=== PATIENT | female | born 1985 | race Two or more races ===

== ENCOUNTER 2018-08-03 01:45 | Inpatient (IN) | payer OTHER ==
--- NOTE | 2018-08-03 02:41 | HP ---
Past Medical History - Primary Care Physician PCP:: Jennifer Nichols - Admission Chief Complaint: 33 yrs EDC 08/14/18 by late sono is 38.2/7 weeks c/o onset LP since !.15 AM No care .LD in 04/2017 History of Present Illness: Pt was seen on 07/25/18 in L&D for labor asses some workup was done . sono on 07/25/18 reported 36,6 weeks GA, SLIUP,Vx, EVANGELINA 12.9cm, EFW 3125gm, BPP 8/ 8, post placenta. U/A neg, Urine Drug Tox neg urine GC/CT neg, Vaginal culture for GBS POS History Source: Patient, Medical Record (limited records) Limitations to Obtaining History: No Limitations - Past Medical History MUD ENGINEER: No: CVA, Migraine, Seizure Cardiovascular: No: HTN, Murmur Pulmonary: Yes: Asthma (rx albuterol inhaler prn) Gastrointestinal: Yes: Constipation Hepatobiliary: Yes: Other (not known) Renal/: Yes: Other (not known) ...: 7 ...Para: 5 (5 06/10, 10/09, 11/13, 12/13, , ) ...Term: 5 (4 in [place],1 in [place] ) ...Induced : 1 (G6, 1st trimester ) ...EDC by Sono: 08/14/18 (38.2 weeks by late sono on 07/25/18) Heme/Onc: Yes: Anemia (started vit 1 week ago) Infectious Disease: Yes: Other (unknown) Psych: No: Addictions, Anxiety, Bipolar, Depression, Panic, Psychosis, Schizophrenia, Other Endocrine: Yes: Other (none known) - Past Surgical History Past Surgical History: Yes: None Hx Myomectomy: No Hx Transabdominal Cerclage: No - Alcohol/Substance Use Hx Alcohol Use: No History of Substance Use: reports: None Home Medications - Allergies Allergies/Adverse Reactions: Allergies Allergy/AdvReac Type Severity Reaction Status Date / Time No Known Allergies Allergy Verified 08/03/18 05:39 - Home Medications Home Medications: Ambulatory Orders Albuterol Sulfate Inhaler - [Ventolin Hfa Inhaler -] 1 puff IH PRN 07/25/18 Pnv No.95/Ferrous Fum/Folic AC [ Formula] 1 each PO DAILY #30 tablet Physical Exam - Maternity Vital Signs: Selected Entries 08/03/18 03:10 Temperature 98.2 F Pulse Rate 103 H Blood Pressure 129/80 Weight 167 lb Constitutional: Yes: Well Nourished, Obese Eyes: Yes: WNL HENT: Yes: WNL, Normocephalic Neck: Yes: WNL Cardiovascular: Yes: WNL, Regular Rate and Rhythm Lungs: Clear to auscultation - Abdominal Exam/OB Fundal Height: 38 Number of Fetuses: Single Presentation: Vertex Contractions: Yes Regularity: Regular (3-4 min) Intensity: Mod/Strong Monitor Mode: External Heart Rate (range): 130-140 Heart Rate Location: [facility] Category: I Accelerations: Uniform Decelerations: None - Vaginal Exam/OB Vaginal Bleediing: Bloody Show Speculum Exam: No Dilatation (cm): 4-5 Effacement (%): 70 Amniotic Membrane Status: Intact Nitrazine Test: Negative Presentation: Vertex/Position Station: -2 - Physical Exam Musculoskeletal: Yes: WNL (-2/-3) Extremities: Yes: WNL Edema: Yes Edema: LLE: 1+, RLE: 1+ Integumentary: Yes: Tattoos Deep Tendon Reflex Grade: Normal +2 ...Motor Strength: WNL Psychiatric: Yes: WNL, Alert, Oriented - Labs Lab Results: Laboratory Tests 08/03/18 08/03/18 02:45 02:45 WBC 8.0 Hgb 9.6 L Hct 28.5 L Plt Count 224 PT with INR 12.30 INR 1.04 PTT (Actin FS) 22.7 L Laboratory Tests 08/03/18 08/03/18 08/03/18 02:45 02:45 02:45 Sodium 138 Potassium 3.8 Chloride 105 Carbon Dioxide 26 BUN 12 Creatinine 0.9 Random Glucose 82 Calcium 8.7 Total Bilirubin 0.4 AST 8 L ALT 15 Total Protein 6.6 Albumin 2.7 L RPR Titer Nonreactive HIV 1&2 Antibody Screen Negative HIV P24 Antigen Negative Problem List - Problems (1) with 38 completed weeks gestation Code(s): Z3A.38 - 38 WEEKS GESTATION OF (2) No care in current Code(s): O09.30 - SUPRVSN OF PREG W INSUFFICIENT ANTENAT CARE, UNSP TRIMESTER (3) Labor established Code(s): EAW0458 - (4) Positive GBS test Code(s): B95.1 - STREPTOCOCCUS, GROUP B, CAUSING DISEASES CLASSD ELSWHR (5) Grand multipara in labor in third trimester Code(s): O09.43 - SUPRVSN OF W GRAND MULTIPARITY, THIRD TRIMESTER (6) Anemia Code(s): D64.9 - ANEMIA, UNSPECIFIED Qualifiers: Anemia type: iron deficiency Iron deficiency anemia type: inadequate dietary iron intake Qualified Code(s): D50.8 - Other iron deficiency anemias Assessment/Plan 33 yrs , 38 .2weeks gestation, no care, GBS pos Plan IV ampicillin prophylaxis labor analgesia stadol + phenrgan or epidural trial vaginal delivery
[2018-08-03] MEDS ORDERED: ELECTROLYTE-148 SOLN 1,000 ML IV SCH (02:45)
[2018-08-03] MEDS ORDERED: AMPICILLIN - 2 GM in SODIUM CHLORIDE 100 ML IVPB ONE (02:59)
[2018-08-03] MEDS ORDERED: AMPICILLIN SODIUM 2 GM VIAL ONE (03:01)
[2018-08-03 03:09] LABS: BASO % 0.4 % (0-2.0); EOS % 1.1 % (0-4.5); HEMATOCRIT 28.5 % (32.4-45.2); HEMOGLOBIN 9.6 GM/dL (10.7-15.3); LYMPH % 22.5 % (8-40); MCH 29.8 pg (25.7-33.7); MCHC 33.6 g/dl (32.0-36.0); MEAN CELL VOLUME 88.7 fl (80-96); MEAN PLT VOLUME 8.9 fl (7.5-11.1); MONO % 11.1 % (3.8-10.2); NEUT % 64.9 % (42.8-82.8); PLATELET COUNT 224 K/MM3 (134-434); RBC 3.22 M/mm3 (3.60-5.2); RDW 15.7 % (11.6-15.6)
[2018-08-03 03:24] VITALS: BMI 28.6
[2018-08-03] MEDS ORDERED: OXYTOCIN 20 UNITS in 0.9% NS 20 UNIT/1,000 ML INFUS.BAG IV ONE ×2 (03:26→06:41)
[2018-08-03 03:27] LABS: INR 1.04 (0.83-1.09); PROTHROMBIN TIME (PATIENT) 12.3 SEC (9.7-13.0)
[2018-08-03 03:29] LABS: ACTIVATED PTT 22.7 SECONDS (25.2-36.5)
--- NOTE | 2018-08-03 03:40 | PN ---
Delivery - Delivery Vaginal Delivery: No Problems, Spontaneous (baby girl delivered vx, Tona , cord around neck, released before delivery of shoulder , immediate oral & nasal suction was done , 9/9. placenta & membranes delivered completely. perineum & vagina was intact .) EBL (cc): 300 Delivery, Single - Stages of Labor Date 1st Stage Initiatied: 08/03/18 Time 1st Stage Initiated: 01:15 Date 2nd Stage Initiated: 08/03/18 Time 2nd Stage Initiated: : Date of Delivery: 08/03/18 Time of Delivery: : Date Placenta Delivered: 08/03/18 Time Placenta Delivered: : Placenta: Yes: Spontaneous, Uterine Exploration - Condition of Infant Adult Nurse Practitioner/Station Agent Present: No Infant Gender: Female Weight: 8 lb 8 oz Position: Left, OA (cord around neck x1) - 1 Minute Total Score: 9 5 Minutes Total Score: 9 - [place] Feeding Plan Initial Plan: Elected not to breastfeed exclusively throughout hospitalization Remarks - Remarks Remarks: 33 yrs , 38.2 weks iup , no care , GBS pos pt received one dose of IV Ampiciilin Intrapartum course uneventful
[2018-08-03] MEDS ORDERED: METHYLERGONOVINE MALEATE 0.2 MG/1 ML AMP IM PRN (03:41)
[2018-08-03] MEDS ORDERED: BENZOCAINE 28 GM HEMORRHOIDAL OINTMENT TP PRN (03:41)
[2018-08-03] MEDS ORDERED: BISACODYL 10 MG SUPP.RECT RC PRN (03:41)
[2018-08-03] MEDS ORDERED: oxyCODONE HCL 5 MG TABLET PO PRN (03:41)
[2018-08-03] MEDS ORDERED: BENZOCAINE 20% 57 GM BOTTLE TP PRN (03:41)
[2018-08-03] MEDS ORDERED: WITCH HAZEL 50% (TUCKS) 40 PAD/JAR PAD TP PRN (03:41)
[2018-08-03 03:45] LABS: ALBUMIN 2.7 g/dl (3.4-5.0); ALK PHOS 159 U/L (45-117); ANION GAP 7 MMOL/L (8-16); BILIRUBIN,TOTAL 0.4 mg/dL (0.2-1); BLOOD UREA NITROGEN 12 mg/dL (7-18); CALCIUM 8.7 mg/dL (8.5-10.1); CHLORIDE 105 mmol/L (98-107); CO2 26 mmol/L (21-32); CREATININE 0.9 mg/dL (0.55-1.3); GLUCOSE,RANDOM 82 mg/dL (74-106); POTASSIUM 3.8 mmol/L (3.5-5.1); SGOT/AST 8 U/L (15-37); SGPT/ALT 15 U/L (13-61); SODIUM 138 mmol/L (136-145); TOT PROT 6.6 g/dl (6.4-8.2)
[2018-08-03] MEDS ORDERED: OXYTOCIN 20 UNITS in 0.9% NS 20 UNIT/1,000 ML INFUS.BAG IV SCH (03:45)
[2018-08-03] MEDS ORDERED: IBUPROFEN 600 MG TABLET (FP) PO ONE (03:58)
[2018-08-03] MEDS ORDERED: ACETAMINOPHEN 325 MG TABLET (FP) ONE (03:59)
[2018-08-03] MEDS: IBUPROFEN 600 MG TABLET (FP) PO PRN ×2 (04:00→17:29)
[2018-08-03] MEDS: ACETAMINOPHEN 325 MG TABLET (FP) PO PRN ×2 (04:00→17:30)
[2018-08-03] MEDS ORDERED: TUBERCULIN PPD 5 TU/0.1ML SYRINGE (IN PATIENT USE ONLY) ID ONE (06:30)
[2018-08-03] MEDS ORDERED: AMPICILLIN - 1 GM in SODIUM CHLORIDE 100 ML IVPB SCH (07:00)
[2018-08-03] MEDS: PRENATAL VITAMINS W/ FOLIC ACID TABLET (FP) PO SCH (11:00)
[2018-08-03] MEDS: FERROUS SO4 325 MG TABLET (FP) PO SCH ×2 (11:00→17:29)
--- NOTE | 2018-08-04 07:39 | PN ---
Post Progress Note - Subjective Subjective: no complains Post Day: 1 Type of Delivery: Vital Signs: Vital Signs Temperature 98.0 F 08/04/18 05:17 Pulse Rate 70 08/04/18 05:17 Respiratory Rate 18 08/04/18 05:17 Blood Pressure 100/60 08/04/18 05:17 O2 Sat by Pulse Oximetry (%) 100 08/03/18 15:12 Breast Exam: Yes: Soft, Other. No: Engorged Uterus: Yes: Fundus Firm, Fundus below umbilicus, Non-tender Lochia: Yes: Rubra Lochia, amount: Moderate Extremities: Yes: Calves non-tender Perineum: Yes: Intact Activity: Ambulating - Labs Labs: CBC WBC 8.0 K/mm3 (4.0-10.0) 08/03/18 02:45 RBC 3.22 M/mm3 (3.60-5.2) L 08/03/18 02:45 Hgb 9.6 GM/dL (10.7-15.3) L 08/03/18 02:45 Hct 28.5 % (32.4-45.2) L 08/03/18 02:45 MCV 88.7 fl (80-96) 08/03/18 02:45 MCH 29.8 pg (25.7-33.7) 08/03/18 02:45 MCHC 33.6 g/dl (32.0-36.0) 08/03/18 02:45 RDW 15.7 % (11.6-15.6) H 08/03/18 02:45 Plt Count 224 K/MM3 (134-434) 08/03/18 02:45 MPV 8.9 fl (7.5-11.1) 08/03/18 02:45 Absolute Neuts (auto) 5.2 K/mm3 (1.5-8.0) 08/03/18 02:45 Neutrophils % 64.9 % (42.8-82.8) 08/03/18 02:45 Lymphocytes % 22.5 % (8-40) 08/03/18 02:45 Monocytes % 11.1 % (3.8-10.2) H 08/03/18 02:45 Eosinophils % 1.1 % (0-4.5) 08/03/18 02:45 Basophils % 0.4 % (0-2.0) 08/03/18 02:45 Nucleated RBC % 0 % (0-0) 08/03/18 02:45 Problem List - Problems (1) with 38 completed weeks gestation Code(s): Z3A.38 - 38 WEEKS GESTATION OF (2) No care in current Code(s): O09.30 - SUPRVSN OF PREG W INSUFFICIENT ANTENAT CARE, UNSP TRIMESTER (3) Labor established Code(s): IRS4238 - (4) Positive GBS test Code(s): B95.1 - STREPTOCOCCUS, GROUP B, CAUSING DISEASES CLASSD ELSWHR (5) Grand multipara in labor in third trimester Code(s): O09.43 - SUPRVSN OF W GRAND MULTIPARITY, THIRD TRIMESTER (6) Anemia Code(s): D64.9 - ANEMIA, UNSPECIFIED Qualifiers: Anemia type: iron deficiency Iron deficiency anemia type: inadequate dietary iron intake Qualified Code(s): D50.8 - Other iron deficiency anemias (7) Vaginal delivery Code(s): O80 - ENCOUNTER FOR FULL-TERM UNCOMPLICATED DELIVERY (8) Encounter for assessment Code(s): Z39.2 - ENCOUNTER FOR ROUTINE FOLLOW-UP
[2018-08-04] MEDS: FERROUS SO4 325 MG TABLET (FP) PO SCH ×2 (08:19→17:16)
[2018-08-04 08:22] LABS: BASO % 0.4 % (0-2.0); EOS % 2.3 % (0-4.5); HEMATOCRIT 28.2 % (32.4-45.2); HEMOGLOBIN 9.5 GM/dL (10.7-15.3); LYMPH % 18.9 % (8-40); MCH 29.6 pg (25.7-33.7); MCHC 33.5 g/dl (32.0-36.0); MEAN CELL VOLUME 88.2 fl (80-96); MEAN PLT VOLUME 8.6 fl (7.5-11.1); MONO % 8.1 % (3.8-10.2); NEUT % 70.3 % (42.8-82.8); PLATELET COUNT 212 K/MM3 (134-434); RDW 16.1 % (11.6-15.6); WHITE BLOOD COUNT 9.7 K/mm3 (4.0-10.0)
[2018-08-04] MEDS: PRENATAL VITAMINS W/ FOLIC ACID TABLET (FP) PO SCH (09:15)
[2018-08-04] MEDS ORDERED: DIPHTH,PERTUSS(ACELL),TET 0.5 ML DISP.SYRIN IM ONE (10:00)
[2018-08-04 15:16] LABS: HBsAG SCREEN Negative (Negative)
[2018-08-04 17:12] LABS: RUBELLA IgG ANTIBODY 3.31 index (Immune >0.99)
[2018-08-04] MEDS: IBUPROFEN 600 MG TABLET (FP) PO PRN (21:44)
[2018-08-04] MEDS: ACETAMINOPHEN 325 MG TABLET (FP) PO PRN (21:44)
[2018-08-04] MEDS ORDERED: SENNOSIDES/DOCUSATE COMBO (SENNA PLUS) TABLET (UD) PO PRN (22:00)
[2018-08-05 08:03] VITALS: BP 127/70; PULSE 67; TEMP 98.5
[2018-08-05] MEDS: FERROUS SO4 325 MG TABLET (FP) PO SCH (08:21)
[2018-08-05] MEDS: IBUPROFEN 600 MG TABLET (FP) PO PRN (08:21)
[2018-08-05] MEDS: ACETAMINOPHEN 325 MG TABLET (FP) PO PRN (08:21)
[2018-08-05] MEDS: PRENATAL VITAMINS W/ FOLIC ACID TABLET (FP) PO SCH (09:06)
--- NOTE | 2018-08-05 10:08 | DS ---
Physical Exam-POLICE COMMUNICATIONS DISPATCHER Vital Signs: Vital Signs Temperature 98.5 F 08/05/18 07:20 Pulse Rate 67 08/05/18 07:20 Respiratory Rate 20 08/05/18 07:20 Blood Pressure 127/70 08/05/18 07:20 O2 Sat by Pulse Oximetry (%) 100 08/03/18 15:12 Constitutional: Yes: Well Nourished Eyes: Yes: Conjunctiva Clear HENT: Yes: Atraumatic Neck: Yes: Supple Cardiovascular: Yes: Regular Rate and Rhythm Respiratory: Yes: Regular Gastrointestinal: Yes: Normal Bowel Sounds ...Rectal Exam: Yes: WNL Pelvis: Yes: WNL External Genitalia: Yes: Normal Vaginal Exam: Yes: Normal Cervix: Yes: Normal Uterus: Yes: Normal Neurological: Yes: Alert, Oriented ...Motor Strength: WNL Psychiatric: Yes: Alert, Oriented Labs: CBC, BMP 08/04/18 07:25 08/03/18 02:45 Delivery - Delivery Vaginal Delivery: No Problems, Spontaneous (baby girl delivered vx, Tona , cord around neck, released before delivery of shoulder , immediate oral & nasal suction was done , 9/9. placenta & membranes delivered completely. perineum & vagina was intact .) Type of Anesthesia: None Episiotomy/Laceration: None EBL (cc): 300 Delivery, Single - Stages of Labor Date 1st Stage Initiatied: 08/03/18 Time 1st Stage Initiated: 01:15 Date 2nd Stage Initiated: 08/03/18 Time 2nd Stage Initiated: 03:15 Date of Delivery: 08/03/18 Time of Delivery: 03:23 Time Placenta Delivered: 03:28 Placenta: Yes: Spontaneous, Uterine Exploration - Condition of Infant Market Researcher/Printed Circuit Boards Beveler Present: No Infant Gender: Female Weight: 8 lb 8 oz Position: Left, OA (cord around neck x1) Total Hours ROM (Hrs/Mins): 0Hrs/13Mins - 1 Minute Total Score: 9 5 Minutes Total Score: 9 - Feeding Plan Initial Plan: Elected not to breastfeed exclusively throughout hospitalization Discharge Summary Reason For Visit: LABOR ADMIT Current Active Problems Anemia (Acute) Encounter for assessment (Acute) Grand multipara in labor in third trimester (Acute) Labor established (Acute) Positive GBS test (Acute) with 38 completed weeks gestation (Acute) Vaginal delivery (Acute) Procedures: Principal: Normal spontaneous vaginal delivery Hospital Course: Routine care Condition: Stable - Instructions Diet, Activity, Other Instructions: Discharge Instructions * Out of Bed * * Regular Diet * Sherry Care * Avoid sex for 6 weeks * rtc 6 weeks If you experience excessive bleeding or fever over 101 degrees, call doctor, the clinic or go to the Emergency Room. Referrals: Jennifer Nichols MD [Staff Physician] - Disposition: HOME - Home Medications Comprehensive Discharge Medication List: Ambulatory Orders Albuterol Sulfate Inhaler - [Ventolin HFA Inhaler -] 1 puff IH PRN 07/25/18 Pnv No.95/Ferrous Fum/Folic AC [ Formula Tablet] 1 each PO DAILY #30 tablet 07/25/18 Acetaminophen [Tylenol .Regular Strength -] 650 mg PO Q3H PRN tablet 08/04/18 Ferrous Sulfate [Feosol] 325 mg PO BIDWM #60 tab 08/04/18 Ibuprofen [Motrin -] 200 mg PO Q4H PRN tablet 08/04/18 Vitamins (Sjr) - 1 tab PO DAILY tablet 08/04/18 Sennosides/Docusate Sodium [Pericolace -] 2 tablet PO HS PRN #60 tablet
== END 2018-08-05 12:05 | disposition home or self-care (01) | DRG 560 ==
LOC: JDEL 01:45 → JLDR 02:20 → J3W 14:01
PROVIDERS: ADMIT Obstetrics & Gynecology; ATTEND Obstetrics & Gynecology
PROC: 10E0XZZ Delivery of Products of Conception, External Approach (ICD-10-PCS; principal; 2018-08-03)
DX: O99.02 Anemia complicating childbirth (principal); D64.9 Anemia, unspecified; O99.824 Streptococcus B carrier state complicating childbirth; O69.81X0 Labor and delivery complicated by cord around neck, without compression, not applicable or unspecified; Z3A.38 38 weeks gestation of pregnancy; Z37.0 Single live birth
CPT/HCPCS: 36415; 59409; 80048; 80053; 85025; 85610; 85730; 86593; 86762; 86850; 86900; 86901; 87340; 87389; 90715

== ENCOUNTER 2019-03-16 13:37 | Emergency (ER) | payer OTHER ==
[2019-03-16 13:49] VITALS: BP 102/65; PULSE 73; TEMP 97.9; BMI 27.4
--- NOTE | 2019-03-16 14:03 | PDOC ---
History of Present Illness - General Chief Complaint: Lice Stated Complaint: HEAD LICE Time Seen by Provider: 03/16/19 13:49 History Source: Patient - History of Present Illness Timing/Duration: other Past History - Past Medical History Allergies/Adverse Reactions: Allergies Allergy/AdvReac Type Severity Reaction Status Date / Time No Known Allergies Allergy Verified 08/03/18 05:39 Home Medications: Ambulatory Orders Albuterol Sulfate Inhaler - [Ventolin HFA Inhaler -] 1 puff IH PRN 07/25/18 Pnv No.95/Ferrous Fum/Folic AC [ Formula Tablet] 1 each PO DAILY #30 tablet 07/25/18 Acetaminophen [Tylenol .Regular Strength -] 650 mg PO Q3H PRN tablet 08/04/18 Ferrous Sulfate [Feosol] 325 mg PO BIDWM #60 tab 08/04/18 Ibuprofen [Motrin -] 200 mg PO Q4H PRN tablet 08/04/18 Vitamins (Sjr) - 1 tab PO DAILY tablet 08/04/18 Sennosides/Docusate Sodium [Pericolace -] 2 tablet PO HS PRN #60 tablet Asthma: Yes (last attack ) Cancer: No Cardiac Disorders: No Diabetes: No HTN: No Seizures: No Thyroid Disease: No - Psycho Social/Smoking Cessation Hx Smoking History: Never smoked Have you smoked in the past 12 months: No Hx Alcohol Use: No Drug/Substance Use Hx: No Hx Substance Use Treatment: No Review of Systems - Review of Systems Constitutional: No: Chills, Fever Integumentary: No: Pruritus, Rash *Physical Exam - Vital Signs Last Vital Signs Temp Pulse Resp BP Pulse Ox 97.9 F 73 17 102/65 100 03/16/19 13:47 03/16/19 13:47 03/16/19 13:47 03/16/19 13:47 03/16/19 13:47 - Physical Exam General Appearance: Yes: Appropriately Dressed. No: Apparent Distress HEENT: positive: Normal Voice Neck: positive: Supple Respiratory/Chest: negative: Respiratory Distress Integumentary: positive: Dry, Warm, Other (no nits/insects/eggs to scalp) Neurologic: positive: Fully Oriented, Alert, Normal Mood/Affect Medical Decision Making - Medical Decision Making 03/16/19 13:57 34-year-old female, no significant history, here with entire family to be evaluated for possible lice. States 1 of her children has been in close proximity with another child who was diagnosed with lice and states 1 of her children exhibits "eggs" on her scalp but states herself and the rest of her children has no gross insects, eggs or itching on scalp/body at this time. Patient well-appearing with normal scalp/derm exam. Dc with reassurance and contact precautions Discharge - Discharge Information Problems reviewed: Yes Clinical Impression/Diagnosis: Evaluation by medical service required Condition: Good Disposition: HOME - Follow up/Referral - Patient Discharge Instructions Additional Instructions: Your exam was normal today. Louse survival off the scalp beyond 48 hours is unlikely Wash all clothing and linens in hot water at home. Items that cannot be washed may be dry cleaned or stored in a sealed plastic bag for 2 weeks vacuum furniture and carpeting that infested child have sat or lay down on. Though the risk of transmission from the sites is low Do not lay or have your other children sleep on the same bed as infested child until symptoms/sign resolve If other children exhibits same symptoms, return to the ER - Post Discharge Activity
== END 2019-03-16 14:49 | disposition home or self-care (01) ==
LOC: JERFT 13:37
DX: Z03.89 Encounter for observation for other suspected diseases and conditions ruled out (principal)
CPT/HCPCS: 99281-25

== ENCOUNTER 2019-03-17 10:31 | Emergency (ER) | payer OTHER ==
[2019-03-17 11:09] VITALS: BP 104/71; PULSE 70; TEMP 98.4; BMI 26.6
[2019-03-17 12:24] LABS: EPI CELLS 1.4 /HPF (0-5/HPF); HYALINE CASTS 0 /lpf (0-8); PH,URINE 6.5 (5.0-8.0); URINE APPEARANCE CLEAR; URINE BACTERIA 18.7 /hpf (NEGATIVE); URINE BILIRUBIN NEGATIVE (NEGATIVE); URINE COLOR YELLOW; URINE GLUCOSE (UA) NEGATIVE (NEGATIVE); URINE KETONE NEGATIVE (NEGATIVE); URINE LEUK ESTERASE TRACE (NEGATIVE); URINE NITRITE NEGATIVE (NEGATIVE); URINE PROTEIN NEGATIVE (NEGATIVE); URINE RBC 2 /hpf (0-4); URINE UROBILINOGEN 0.2 mg/dL (0.2-1.0); URINE WBC 1 /hpf (0-5)
--- NOTE | 2019-03-17 12:31 | PDOC ---
History of Present Illness - General Chief Complaint: Vaginal Bleeding Stated Complaint: BLOOD CLOT Time Seen by Provider: 03/17/19 12:04 History Source: Patient Exam Limitations: No Limitations - History of Present Illness Initial Comments: 03/17/19 12:30 HPI: 34yo F A1 with PMH asthma presenting with vaginal bleeding since a medical in January. Patient reports having a medical [facility] at [facility] January with subsequent moderate-heavy vaginal bleeding without smell / other discharge. Pt has used 3 pads per day on average and passed a "clot the size of [her] hand" last night prompting her presentation. She has had several different OBGYNs over the year and most recently gave in August of this here here at [facility]. Pt is not currently on control. Denies any history of fibroids / polyps / cysts / abnormal PAPs / STIs. Has no personal or family history of bleeding or clotting disorders. Endorses some fatigue and a mild intermittent headache, and mild lower abdominal discomfort. Denies weakness / lightheadedness. Denies any fevers / chills, chest pain, SOB. NKDA PRN albuterol PMH: denies PSH: denies Past History - Travel Traveled outside of the country in the last 30 days: No Close contact w/someone who was outside of country & ill: No - Past Medical History Allergies/Adverse Reactions: Allergies Allergy/AdvReac Type Severity Reaction Status Date / Time No Known Allergies Allergy Verified 03/17/19 11:07 Home Medications: Ambulatory Orders Albuterol Sulfate Inhaler - [Ventolin HFA Inhaler -] 1 puff IH PRN 07/25/18 Asthma: Yes (last attack ) Cancer: No Cardiac Disorders: No COPD: No Diabetes: No HTN: No Seizures: No Thyroid Disease: No - Reproductive History Is Patient Now?: (unknown) (#): 7 Para: 6 Therapeutic (s) & number: Yes (1) - Psycho Social/Smoking Cessation Hx Smoking History: Never smoked Have you smoked in the past 12 months: No Hx Alcohol Use: No Drug/Substance Use Hx: No Hx Substance Use Treatment: No Review of Systems - Review of Systems Able to Perform ROS?: Yes Is the patient limited Estonian proficient: Yes Constitutional: No: Chills, Fever, Malaise, Weakness HEENTM: No: Eye Pain, Nose Congestion, Tinnitus, Hearing Loss, Throat Pain Respiratory: No: Cough, Orthopnea, Shortness of Breath, Wheezing Cardiac (ROS): No: Chest Pain, Edema, Irregular Heart Rate, Palpitations, Syncope, Chest Tightness ABD/GI: No: Constipated, Diarrhea, Nausea, Poor Appetite, Poor Fluid Intake, Vomiting, Indigestion : No: Burning, Dysuria, Discharge, Frequency, Pain Musculoskeletal: No: Back Pain, Joint Pain, Joint Swelling, Muscle Weakness Integumentary: No: Bruising, Pruritus, Rash Neurological: No: Headache, Numbness, Seizure, Tingling, Weakness Psychiatric: No: Anxiety, Depression, Mood Swings Endocrine: No: Excessive Sweating, Increased Thirst, Increased Urine, Unexplained Weight Gain, Unexplained Weight Loss Hematologic/Lymphatic: No: Anemia, Blood Clots, Easy Bleeding, Easy Bruising All Other Systems: Reviewed and Negative *Physical Exam - Vital Signs Last Vital Signs Temp Pulse Resp BP Pulse Ox 98.4 F 70 18 104/71 100 03/17/19 11:07 03/17/19 11:07 03/17/19 11:07 03/17/19 11:07 03/17/19 11:07 - Physical Exam Comments: 03/17/19 13:11 Vitals reviewed, AFVSS WDWN woman, appears stated age, no acute distress MMM, EOMI, NCAT, trachea midline CTABL, normal WOB, no wheezes / rales / rhonchi Soft, diffusely tender in lower abdomen, nondistended, no scars or markings WWP, no clubbing / cyanosis / edema Alert and oriented, MAEE, CN grossly intact SSE: normal external genitalia and vaginal mucosa without lesion, closed OS visualized with small amount of bleeding, no other discharge BME: tenderness, no adnexal fullness, no CMT, normal contracted uterine fundus ED Treatment Course - LABORATORY CBC & Chemistry Diagram: 03/17/19 13:00 03/17/19 13:00 - ADDITIONAL ORDERS Additional order review: Laboratory Results 03/17/19 11:46 Urine Color Yellow Urine Appearance Clear Urine pH 6.5 Ur Specific [place] 1.011 Urine Protein Negative Urine Glucose (UA) Negative Urine Ketones Negative Urine Blood 2+ H Urine Nitrite Negative Urine Bilirubin Negative Urine Urobilinogen 0.2 Ur Leukocyte Esterase Trace Urine WBC (Auto) 1 Urine RBC (Auto) 2 Urine Casts (Auto) 0 U Epithel Cells (Auto) 1.4 Urine Bacteria (Auto) 18.7 Medical Decision Making - Medical Decision Making 03/17/19 12:45 34yo F A1 with PMH asthma presenting with vaginal bleeding since a medical in January. History notable for continuous bleeding, no prior episodes or ELECTRONIC ENGRAVER history, not on BC currently, not in significant pain. Exam notable for uterine bleeding without discharge, lower abdominal tenderness, afebrile, well- appearing. DDX includes: , AUB/DUB, Retained POC or less likely new onset fibroid or uterine atony. Will evaluate basic labs for anemia given patient fatigue. -CBC, CMP, T&S -UA, UCx, UPreg -TVUS -Motrin 600mg after UPreg 03/17/19 13:24 Negative test No UTI, blood from active vaginal bleeding 03/17/19 13:38 No leukocytosis or anemia CMP pending 03/17/19 13:49 No electrolyte disturbances, normal LFTs, good renal function 03/17/19 14:51 Patient just returned from ultrasound, began to have an outburst, demanded that they leave, and they eloped Printed AMA paperwork, however patient left the department before conversation / signing Will follow up the TVUS results 03/17/19 15:05 Patient returned to department, discussed risks, patient opted to leave, signed out AMA Discharge - Discharge Information Problems reviewed: Yes Clinical Impression/Diagnosis: Dysfunctional uterine bleeding Condition: Stable Disposition: AGAINST MEDICAL ADVICE - Admission No - Follow up/Referral Referrals: Rahul Valdovinos MD [Primary Care Provider] - Jennifer Nichols MD [Staff Physician] - - Patient Discharge Instructions Patient Printed Discharge Instructions: DI for Abnormal Uterine Bleeding Additional Instructions: Please follow up with the OBGYN of your choice for further work up of your Abnormal Uterine Bleeding. You can return to [facility] or call the OBGYN who delivered for you in August (information is included in this packet - call for an appointment). Return to the ED if your have any new or concerning symptoms included but not limited to: worsening uterine bleeding (more than 2 pads per hour for 2 hours), light headedness or feeling like you are going to pass out, fevers and chills as these may be signs of worsening blood loss or infection. - Post Discharge Activity
[2019-03-17] MEDS ORDERED: IBUPROFEN 600 MG TABLET (FP) PO ONE ×2 (12:47→12:54)
--- NOTE | 2019-03-17 12:49 | PDOC ---
Attending Attestation - Resident Resident Name: Asif James - ED Attending Attestation I have performed the following: I have examined & evaluated the patient, The case was reviewed & discussed with the resident, I agree w/resident's findings & plan, Exceptions are as noted - HPI HPI: 03/17/19 12:47 34yo F , recent spontanous 01/2019 at approx 6 weeks preg, presents to the ED with vaginal bleeding intermittently since 01/2019. She reports 2-3 pads per day bleeding since the , however last night, she passed a clot she states the size of her fist. When she informed her he recommended she come to the emergency department in the morning. She reports mild midline pelvic discomfort intermittently. Denies any vaginal discharge. She is monogamous and sexually active with one partner - her . Denies fevers, chills, headache, focal weakness or numbness, chest pain, shortness of breath, lower extremity edema, urinary frequency, dysuria, urgency. 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 - Physicial Exam PE: 03/17/19 13:10 Agree with resident exam. - Medical Decision Making 03/17/19 13:10 34-year-old female G7, P6, recent spontaneous at 6 weeks in January presents to the emergency department with vaginal bleeding since the , and passage of a clot last night. Vitals are within normal limits. She is not today. Differential includes dysfunctional uterine bleeding versus retained products of conception versus fibroids. Will plan for labs, urinalysis , transvaginal ultrasound and reassess. 03/17/19 15:00 Ultrasound has been performed, but the read is pending. Patient notified staff that she needs to leave because her partner will not wait for her. Informed patient that do not know the results of her ultrasound yet and that she is not ready for discharge, however she is adamant that she must leave now. The patient is clinically sober, free from distracting injury, appears to have intact insight and judgment and reason and in my opinion has the capacity to make decisions. The patient presents with vaginal bleeding. I have explained that I am concerned that this may represent dangerous pathology such as retained products of conception, infection; she has verbalized an understanding of my concerns. I have told the patient that while her labs were normal, she could still have retianed POC. I have told the patient that if she leaves, she could get much worse, could become critically ill, and could possibly become disabled or . The patient is not willing to wait for her US results. She is refusing any further care and is leaving against medical advice. I am unable to convince the patient to stay, I have asked them her return as soon as possible to complete her evaluation. I have answered all their questions. 03/17/19 15:27 TVUS with retained POC. Pt was contaced at listed number, advised to return [facility]. States she will do her best but most likely won't be able to return until tomorrow morning.
[2019-03-17 13:18] LABS: BASO % 0.7 % (0-2.0); EOS % 3.1 % (0-4.5); HEMATOCRIT 39.6 % (32.4-45.2); HEMOGLOBIN 13.1 GM/dL (10.7-15.3); LYMPH % 30.2 % (8-40); MCH 32.3 pg (25.7-33.7); MCHC 33.1 g/dl (32.0-36.0); MEAN CELL VOLUME 97.8 fl (80-96); MONO % 8.5 % (3.8-10.2); NEUT % 57.5 % (42.8-82.8); PLATELET COUNT 234 K/MM3 (134-434); RBC 4.05 M/mm3 (3.60-5.2); RDW 13.1 % (11.6-15.6); WHITE BLOOD COUNT 6.7 K/mm3 (4.0-10.0)
[2019-03-17 13:42] LABS: ALBUMIN 4.3 g/dl (3.4-5.0); BILIRUBIN,TOTAL 0.7 mg/dL (0.2-1); BLOOD UREA NITROGEN 11.5 mg/dL (7-18); CALCIUM 8.9 mg/dL (8.5-10.1); CREATININE 0.8 mg/dL (0.55-1.3); POTASSIUM 3.8 mmol/L (3.5-5.1)
--- NOTE | 2019-03-18 16:36 | PDOC ---
History of Present Illness - General Chief Complaint: Vaginal Bleeding Stated Complaint: BLOOD CLOT Time Seen by Provider: 03/17/19 12:04 - History of Present Illness Initial Comments: 03/18/19 16:35 CHIEF COMPLAINT: vaginal bleeding HISTORY OF PRESENT ILLNESS: 34yo F , recent spontaneous 01/2019 at approximately 6 weeks preg, presents to the ED with vaginal bleeding intermittently since 01/2019. She reports having gone through only two pads in the past 24 hous. She was seen in this ER yesterday after passing a large clot the night before but left prior to receiving results of her ultrasound. PAST MEDICAL HISTORY: Denies past medical history FAMILY HISTORY: Denies SOCIAL HISTORY: Denies tobacco, alcohol, illicit drug use. SURGICAL HISTORY: Denies ALLERGIES: No known drug allergies REVIEW OF SYSTEMS General/Constitutional: Denies fever or chills. Denies weakness, weight change. HEENT: Denies change in vision. Denies ear pain or discharge. Denies sore throat. Cardiovascular: Denies chest pain or shortness of breath. Respiratory: Denies cough, wheezing, or hemoptysis. Gastrointestinal: Denies nausea, vomiting, diarrhea or constipation. Denies rectal bleeding. Genitourinary: Vaginal bleeding x 6 weeks. Denies dysuria, frequency, or change in urination. Musculoskeletal: Denies joint or muscle swelling or pain. Denies neck or back pain. Skin and breasts: Denies rash or easy bruising. Neurologic: Denies headache, vertigo, loss of consciousness, or loss of sensation. Psychiatric: Denies depression or anxiety. PHYSICAL EXAM General Appearance: Well-appearing, appropriately dressed. No apparent distress , no intoxication. HEENT: EOMI, PERRLA, normal ENT inspection, normal voice, TMs normal, pharynx normal. No conjunctival pallor. No photophobia, scleral icterus. Neck: Supple. Trachea midline. No tenderness, rigidity, carotid bruit, stridor , lymphadenopathy, or thyromegaly. Respiratory/Chest: Lungs CTAB. No shortness of breath, chest tenderness, respiratory distress, accessory muscle use. No crackles, rales, rhonchi, stridor , wheezing, dullness Cardiovascular: RRR. S1, S2. No JVD, murmur, bradycardia, tachycardia. Vascular Pulses: Dorsalis-Pedis (R): 2+, Dorsalis-Pedis (L): 2+ Gastrointestinal/Abdominal: Normal bowel sounds. Abdomen soft, non-distended. No tenderness or rebound tenderness. No organomegaly, pulsatile mass, guarding , hernia, hepatomegaly, splenomegaly. Lymphatic: No adenopathy, tenderness. Musculoskeletal/Extremities: Normal inspection. FROM of all extremities, normal capillary refill. Pelvis Stable. No CVA tenderness. No tenderness to extremities, pedal edema, swelling, erythema or deformity. Integumentary: Appropriate color, dry, warm. 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 Fully oriented, alert. Appropriate mood/affect. Motor strength 5/5. No appreciable EOM palsy, facial droop or sensory deficit. Past History - Past Medical History Allergies/Adverse Reactions: Allergies Allergy/AdvReac Type Severity Reaction Status Date / Time No Known Allergies Allergy Verified 03/17/19 11:07 Home Medications: Ambulatory Orders Albuterol Sulfate Inhaler - [Ventolin HFA Inhaler -] 1 puff IH PRN 07/25/18 Asthma: Yes (last attack ) Cancer: No Cardiac Disorders: No COPD: No Diabetes: No HTN: No Seizures: No Thyroid Disease: No - Reproductive History Is Patient Now?: (unknown) (#): 7 Para: 6 Therapeutic (s) & number: Yes (1) - Psycho Social/Smoking Cessation Hx Smoking History: Never smoked Have you smoked in the past 12 months: No Hx Alcohol Use: No Drug/Substance Use Hx: No Hx Substance Use Treatment: No Review of Systems - Review of Systems Is the patient limited Slovenian proficient: Yes *Physical Exam - Vital Signs Last Vital Signs Temp Pulse Resp BP Pulse Ox 98.4 F 70 18 104/71 100 03/17/19 11:07 03/17/19 11:07 03/17/19 11:07 03/17/19 11:07 03/17/19 11:07 ED Treatment Course - LABORATORY CBC & Chemistry Diagram: 03/17/19 13:00 03/17/19 13:00 - ADDITIONAL ORDERS Additional order review: 03/17/19 11:46 Urine Culture - Final Urine - Urine Clean Catch NO GROWTH OBTAINED 03/17/19 13:00 RBC 4.05 MCV 97.8 H MCHC 33.1 RDW 13.1 D MPV 9.0 Neutrophils % 57.5 Lymphocytes % 30.2 D Monocytes % 8.5 Eosinophils % 3.1 Basophils % 0.7 - Medications Given in the ED: ED Medications Discontinued Medications Generic Name Dose Route Start Last Admin Trade Name Jessee PRN Reason Stop Dose Admin Ibuprofen 600 mg 03/17/19 12:47 03/17/19 13:03 Motrin - PO 03/17/19 12:48 600 mg ONCE ONE Administration Medical Decision Making - Medical Decision Making 03/18/19 16:43 34yo F , recent spontaneous 01/2019 at approximately 6 weeks preg, presents to the ED with vaginal bleeding intermittently since 01/2019. Discussed case with Dr. Weston, on-call OB service. Unlikely RPOC given negative Upreg yesterday, recommends repeat beta. -labs Discharge - Discharge Information Clinical Impression/Diagnosis: Dysfunctional uterine bleeding Condition: Stable Disposition: AGAINST MEDICAL ADVICE - Follow up/Referral Referrals: Rahul Valdovinos MD [Primary Care Provider] - Jennifer Nichols MD [Staff Physician] - - Patient Discharge Instructions Patient Printed Discharge Instructions: DI for Abnormal Uterine Bleeding Additional Instructions: Please follow up with the OBGYN of your choice for further work up of your Abnormal Uterine Bleeding. [facility] or call the OBGYN who delivered for you in August (information is included in this packet - call for an appointment). Return to the ED if your have any new or concerning symptoms included but not limited to: worsening uterine bleeding (more than 2 pads per hour for 2 hours), light headedness or feeling like you are going to pass out, fevers and chills as these may be signs of worsening blood loss or infection. - Post Discharge Activity
== END 2019-03-17 15:20 | disposition left against medical advice (07) ==
LOC: JER 10:31
DX: O03.6 Delayed or excessive hemorrhage following complete or unspecified spontaneous abortion (principal); O02.89 Other abnormal products of conception
CPT/HCPCS: 36415; 76830-TC; 80053; 81003; 84703; 85025; 86850; 86900; 86901; 87086; 99283-25

== ENCOUNTER 2019-03-18 17:29 | Emergency (ER) | payer OTHER ==
[2019-03-18 17:56] VITALS: BP 106/60; PULSE 84; TEMP 98.5; BMI 26.6
--- NOTE | 2019-03-18 17:56 | PDOC ---
History of Present Illness - General Stated Complaint: FOLLOW UP Time Seen by Provider: 03/18/19 17:37 - History of Present Illness Initial Comments: 03/18/19 17:56 03/18/19 16:35 CHIEF COMPLAINT: vaginal bleeding HISTORY OF PRESENT ILLNESS: 34yo F , recent spontaneous 01/2019 at approximately 6 weeks preg, presents to the ED with vaginal bleeding intermittently since 01/2019. She reports having gone through only two pads in the past 24 hous. She was seen in this ER yesterday after passing a large clot the night before but left prior to receiving results of her ultrasound. PAST MEDICAL HISTORY: Denies past medical history FAMILY HISTORY: Denies SOCIAL HISTORY: Denies tobacco, alcohol, illicit drug use. SURGICAL HISTORY: Denies ALLERGIES: No known drug allergies REVIEW OF SYSTEMS General/Constitutional: Denies fever or chills. Denies weakness, weight change. HEENT: Denies change in vision. Denies ear pain or discharge. Denies sore throat. Cardiovascular: Denies chest pain or shortness of breath. Respiratory: Denies cough, wheezing, or hemoptysis. Gastrointestinal: Denies nausea, vomiting, diarrhea or constipation. Denies rectal bleeding. Genitourinary: Vaginal bleeding x 6 weeks. Denies dysuria, frequency, or change in urination. Musculoskeletal: Denies joint or muscle swelling or pain. Denies neck or back pain. Skin and breasts: Denies rash or easy bruising. Neurologic: Denies headache, vertigo, loss of consciousness, or loss of sensation. Psychiatric: Denies depression or anxiety. PHYSICAL EXAM General Appearance: Well-appearing, appropriately dressed. No apparent distress , no intoxication. HEENT: EOMI, PERRLA, normal ENT inspection, normal voice, TMs normal, pharynx normal. No conjunctival pallor. No photophobia, scleral icterus. Neck: Supple. Trachea midline. No tenderness, rigidity, carotid bruit, stridor , lymphadenopathy, or thyromegaly. Respiratory/Chest: Lungs CTAB. No shortness of breath, chest tenderness, respiratory distress, accessory muscle use. No crackles, rales, rhonchi, stridor , wheezing, dullness Cardiovascular: RRR. S1, S2. No JVD, murmur, bradycardia, tachycardia. Vascular Pulses: Dorsalis-Pedis (R): 2+, Dorsalis-Pedis (L): 2+ Gastrointestinal/Abdominal: Normal bowel sounds. Abdomen soft, non-distended. No tenderness or rebound tenderness. No organomegaly, pulsatile mass, guarding , hernia, hepatomegaly, splenomegaly. Musculoskeletal/Extremities: Normal inspection. FROM of all extremities, normal capillary refill. Pelvis Stable. No CVA tenderness. No tenderness to extremities, pedal edema, swelling, erythema or deformity. Integumentary: Appropriate color, dry, warm. 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 Fully oriented, alert. Appropriate mood/affect. Motor strength 5/5. No appreciable EOM palsy, facial droop or sensory deficit. 03/18/19 18:25 Past History - Past Medical History Allergies/Adverse Reactions: Allergies Allergy/AdvReac Type Severity Reaction Status Date / Time No Known Allergies Allergy Verified 03/18/19 17:57 Home Medications: Ambulatory Orders Albuterol Sulfate Inhaler - [Ventolin HFA Inhaler -] 1 puff IH PRN 07/25/18 Ibuprofen [Motrin -] 600 mg PO TID #21 tablet 03/18/19 Asthma: Yes (last attack ) Cancer: No Cardiac Disorders: No COPD: No Diabetes: No HTN: No Seizures: No Thyroid Disease: No - Reproductive History (#): 7 Para: 6 Therapeutic (s) & number: Yes (1) - Psycho Social/Smoking Cessation Hx Smoking History: Never smoked Have you smoked in the past 12 months: No Hx Alcohol Use: No Drug/Substance Use Hx: No Hx Substance Use Treatment: No *Physical Exam - Vital Signs Last Vital Signs Temp Pulse Resp BP Pulse Ox 98.5 F 84 16 106/60 100 03/18/19 17:54 03/18/19 17:54 03/18/19 17:54 03/18/19 17:54 03/18/19 17:54 ED Treatment Course - LABORATORY CBC & Chemistry Diagram: 03/18/19 18:08 Medical Decision Making - Medical Decision Making 03/18/19 17:57 34yo F , recent spontaneous 01/2019 at approximately 6 weeks preg, presents to the ED with vaginal bleeding intermittently since 01/2019. Discussed case with Dr. Weston, on-call OB service. Unlikely RPOC given negative Upreg yesterday, recommends repeat beta. -labs beta 21, patient stable f/u outpatient Discharge - Discharge Information Problems reviewed: Yes Clinical Impression/Diagnosis: Dysfunctional uterine bleeding Condition: Stable Disposition: HOME - Admission No - Additional Discharge Information Prescriptions: Ibuprofen [Motrin -] 600 mg PO TID #21 tablet - Follow up/Referral Referrals: Rahul Valdovinos MD [Primary Care Provider] - Sameer Weston MD [Staff Physician] - - Patient Discharge Instructions Patient Printed Discharge Instructions: DI for Vaginal Bleeding Additional Instructions: As discussed, you need to follow up with Dr. Weston in the office on Saturday. If you develop worsening abdominal pain, severe vaginal bleeding (more than one soaked pad each hour), headche, palpitations, fever, nausea, vomiting, diarrhea, or any new or worsening symptoms, please return to the ER immediately. - Post Discharge Activity
[2019-03-18 18:35] LABS: BASO % 0.6 % (0-2.0); EOS % 3.1 % (0-4.5); HEMATOCRIT 37.8 % (32.4-45.2); HEMOGLOBIN 12.4 GM/dL (10.7-15.3); LYMPH % 22.6 % (8-40); MCH 32.2 pg (25.7-33.7); MCHC 32.9 g/dl (32.0-36.0); MEAN CELL VOLUME 97.6 fl (80-96); MEAN PLT VOLUME 9.2 fl (7.5-11.1); MONO % 8.8 % (3.8-10.2); NEUT % 64.9 % (42.8-82.8); PLATELET COUNT 214 K/MM3 (134-434); RBC 3.87 M/mm3 (3.60-5.2); WHITE BLOOD COUNT 7.6 K/mm3 (4.0-10.0)
[2019-03-18] MEDS ORDERED: IBUPROFEN 600 MG TABLET (FP) PO ONE ×2 (18:49→19:07)
== END 2019-03-18 19:11 | disposition home or self-care (01) ==
LOC: JERFT 17:29
DX: O26.891 Other specified pregnancy related conditions, first trimester (principal); Z3A.01 Less than 8 weeks gestation of pregnancy; N93.8 Other specified abnormal uterine and vaginal bleeding; J45.909 Unspecified asthma, uncomplicated
CPT/HCPCS: 36415; 84702; 85025; 99282-25

== ENCOUNTER 2020-12-15 14:45 | Inpatient (IN) | payer OTHER ==
[2020-12-15] MEDS ORDERED: DEXTROSE 5%-LACTATED RINGERS 1,000 ML IV SCH (16:30)
[2020-12-15 17:15] VITALS: BMI 35.4
[2020-12-15] MEDS ORDERED: BUTORPHANOL TARTRATE 1 MG/ML VIAL IVPUSH PRN ×2 (17:24→17:38)
[2020-12-15] MEDS ORDERED: PROMETHAZINE HCL 25 MG/1 ML VIAL IVPUSH ONE (17:24)
[2020-12-15] MEDS ORDERED: OXYTOCIN 30 UNITS in 0.9% NS 30 UNIT/500 ML INFUS.BAG IVPB SCH (17:30)
[2020-12-15 18:03] LABS: BASO % 0.3 % (0-2.0); EOS % 0.7 % (0-4.5); HEMATOCRIT 30.5 % (32.4-45.2); LYMPH % 17.5 % (8-40); MCH 30.4 pg (25.7-33.7); MCHC 32.9 g/dl (32.0-36.0); MEAN CELL VOLUME 92.5 fl (80-96); MEAN PLT VOLUME 8.5 fl (7.5-11.1); MONO % 7.7 % (3.8-10.2); NEUT % 73.8 % (42.8-82.8); PLATELET COUNT 257 10^3/uL (134-434); RBC 3.29 M/mm3 (3.60-5.2); RDW 17.6 % (11.6-15.6)
[2020-12-15 18:15] LABS: INR 1.02 (0.83-1.09); PROTHROMBIN TIME (PATIENT) 12.5 SEC (9.7-13.0)
[2020-12-15 18:18] LABS: ACTIVATED PTT 24.8 SECONDS (25.2-36.5)
[2020-12-15 18:25] LABS: BLOOD UREA NITROGEN 5.5 mg/dL (7-18); CALCIUM 9.5 mg/dL (8.5-10.1)
[2020-12-15 18:29] LABS: CREATININE 0.9 mg/dL (0.55-1.3)
[2020-12-15] MEDS ORDERED: OXYTOCIN 30 UNITS in 0.9% NS 30 UNIT/500 ML INFUS.BAG IVPB ONE (18:29)
[2020-12-15] MEDS ORDERED: FENTANYL/BUPIVACAINE/NS/PF - PCEA - 50 ML DISP.SYRIN EP ONE (19:59)
[2020-12-15] MEDS ORDERED: PCA PUMP NR ONE (19:59)
[2020-12-15] MEDS ORDERED: NALOXONE HCL 0.4 MG/ML VIAL IVPUSH PRN (20:07)
[2020-12-15] MEDS ORDERED: BUPIVACAINE HCL/PF 0.25% (2.5MG/ML) 10 ML VIAL ONE (20:09)
[2020-12-15] MEDS ORDERED: ELECTROLYTE-148 SOLN 1,000 ML IV SCH (20:15)
[2020-12-15] MEDS: FENTANYL/BUPIVACAINE/NS/PF - PCEA - 50 ML DISP.SYRIN EP SCH (20:25)
[2020-12-15] MEDS ORDERED: ePHEDrine SULFATE 50 MG/1 ML AMPULE ONE (20:55)
[2020-12-15] MEDS ORDERED: LIDOCAINE HCL 1% PRESERVATIVE FREE - 30ML VIAL ONE (23:28)
[2020-12-15] MEDS ORDERED: OXYTOCIN 20 UNITS in 0.9% NS 20 UNIT/1,000 ML INFUS.BAG IV ONE (23:28)
[2020-12-15] MEDS ORDERED: OXYTOCIN 20 UNITS in 0.9% NS 20 UNIT/1,000 ML INFUS.BAG IV SCH (23:45)
[2020-12-15] MEDS ORDERED: METHYLERGONOVINE MALEATE 0.2 MG/1 ML AMP IM PRN (23:57)
[2020-12-15] MEDS ORDERED: BISACODYL 10 MG SUPP.RECT RC PRN (23:57)
[2020-12-15] MEDS ORDERED: BENZOCAINE 28 GM HEMORRHOIDAL OINTMENT TP PRN (23:57)
[2020-12-15] MEDS ORDERED: WITCH HAZEL 50% (TUCKS) 40 PAD/JAR PAD TP PRN (23:57)
[2020-12-15] MEDS ORDERED: BENZOCAINE 20% 57 GM BOTTLE TP PRN (23:57)
[2020-12-16 00:40] LABS: CORD PCO2 71.3 mmHg (30-78); CORD pH 7.144 (7.14-7.44)
[2020-12-16 00:44] LABS: CORD HCO3 24.6 mmHg (20-29); CORD PCO2 58.3 mmHg (30-78); CORD pH 7.243 (7.14-7.44)
[2020-12-16 00:47] LABS: CORD BASE EXCESS -2.1 mmol/L (0-2); CORD HCO3 22.7 mmHg (20-29)
[2020-12-16] MEDS: IBUPROFEN 600 MG TABLET (FP) PO PRN (06:01)
[2020-12-16] MEDS: ACETAMINOPHEN 325 MG TABLET (FP) PO PRN (06:02)
[2020-12-16 10:36] LABS: BASO % 0.2 % (0-2.0); EOS % 0.4 % (0-4.5); HEMATOCRIT 28.7 % (32.4-45.2); HEMOGLOBIN 9.2 GM/dL (10.7-15.3); LYMPH % 9.2 % (8-40); MCH 29.7 pg (25.7-33.7); MCHC 31.9 g/dl (32.0-36.0); MEAN CELL VOLUME 92.9 fl (80-96); MEAN PLT VOLUME 8.8 fl (7.5-11.1); MONO % 9.5 % (3.8-10.2); NEUT % 80.7 % (42.8-82.8); PLATELET COUNT 224 10^3/uL (134-434); RBC 3.09 M/mm3 (3.60-5.2)
[2020-12-16] MEDS: FERROUS SO4 325 MG TABLET (FP) PO SCH ×2 (10:41→21:42)
[2020-12-16] MEDS: PRENATAL VITAMINS W/ FOLIC ACID TABLET (FP) PO SCH (10:41)
[2020-12-16] MEDS ORDERED: SENNOSIDES/DOCUSATE COMBO (SENNA PLUS) TABLET (UD) PO PRN (22:00)
[2020-12-16] MEDS: FENTANYL/BUPIVACAINE/NS/PF - PCEA - 50 ML DISP.SYRIN EP SCH (22:09)
[2020-12-17] MEDS: ACETAMINOPHEN 325 MG TABLET (FP) PO PRN (04:03)
[2020-12-17] MEDS: IBUPROFEN 600 MG TABLET (FP) PO PRN (04:04)
[2020-12-17 10:07] VITALS: BP 122/69; PULSE 81; TEMP 98
[2020-12-17] MEDS: PRENATAL VITAMINS W/ FOLIC ACID TABLET (FP) PO SCH (10:45)
[2020-12-17] MEDS: FERROUS SO4 325 MG TABLET (FP) PO SCH (10:45)
== END 2020-12-17 12:55 | disposition home or self-care (01) | DRG 560 ==
LOC: JDEL 14:45 → JLDR 15:55 → J3W 12-16 02:00
PROVIDERS: ADMIT Obstetrics & Gynecology; ATTEND Obstetrics & Gynecology
PROC: 10E0XZZ Delivery of Products of Conception, External Approach (ICD-10-PCS; principal; 2020-12-15)
PROC: 10907ZC Drainage of Amniotic Fluid, Therapeutic from Products of Conception, Via Natural or Artificial Opening (ICD-10-PCS; 2020-12-15)
DX: O80 Encounter for full-term uncomplicated delivery (principal); Z3A.38 38 weeks gestation of pregnancy; Z37.0 Single live birth
CPT/HCPCS: 36415; 36600; 59025; 59409; 80048; 82803; 85025; 85610; 85730; 86780; 86850; 86900; 86901; C9803; U0003; U0005

== ENCOUNTER 2024-05-30 12:51 | Emergency (ER) | payer OTHER ==
[2024-05-30 13:26] VITALS: BP 114/72; PULSE 100; RESP 20; TEMP 98.8; BMI 30.2
[2024-05-30] MEDS ORDERED: predniSONE 20 MG TABLET (UD) ONE (13:57)
[2024-05-30] MEDS ORDERED: ALBUTEROL SO4 2.5/IPRATROPIUM 0.5 INH SOL 3 ML VIAL.NEB. NEB ONE (13:57)
[2024-05-30] MEDS: ALBUTEROL SO4 2.5/IPRATROPIUM 0.5 INH SOL 3 ML VIAL.NEB. NEB ONE ×2 (13:59)
[2024-05-30] MEDS: predniSONE 20 MG TABLET (UD) PO ONE (13:59)
== END 2024-05-30 15:35 | disposition home or self-care (01) ==
LOC: JERFT 12:51
PROC: 3E0F7GC Introduction of Other Therapeutic Substance into Respiratory Tract, Via Natural or Artificial Opening (ICD-10-PCS; principal; 2024-05-30)
DX: J10.1 Influenza due to other identified influenza virus with other respiratory manifestations (principal); R09.81 Nasal congestion; Z20.822 Contact with and (suspected) exposure to COVID-19
CPT/HCPCS: 0241U-QW; 99284-25